=== PATIENT | female | born 1960 | race American Indian/Alaskan Native ===

== ENCOUNTER 2017-03-02 04:02 | Emergency (ER) | payer MEDICARE ==
[2017-03-02 05:13] LABS: Hematocrit 33.4 % (30.3-42.9); Hemoglobin 10.6 gm/dl (10.1-14.3); Mean Corpuscular HGB Conc 32 % (30-34); Mean Corpuscular Hemoglobin 29 pg (28-32); Mean Corpuscular Volume 90 fl (79-97); Platelet Count 124 K/mm3 (140-440)
[2017-03-02 05:21] LABS: Albumin 3.6 g/dL (3.9-5); BUN/Creatinine Ratio 5.93; Bilirubin,Total 0.6 mg/dL (0.1-1.2); Calcium 8.3 mg/dL (8.4-10.2); Chloride 95.6 mmol/L (98-107); Potassium 4.5 mmol/L (3.6-5.0); Total Protein 7.1 g/dL (6.3-8.2)
[2017-03-02 07:07] LABS: Basophils % (Manual) 0 % (0.0-1.8); Blastocytes % (Manual) 0 %
[2017-03-02 07:08] LABS: Anisocytosis 1+; Diff Status Complete; Platelet Estimate Appears Decreased; Polychromasia Few
[2017-03-02] MEDS ORDERED: ATARAX PO ONE (07:21)
[2017-03-02] MEDS ORDERED: NITROSTAT SL PRN (07:21)
[2017-03-02] MEDS ORDERED: BENTYL IM ONE (07:21)
[2017-03-02] MEDS ORDERED: ZOFRAN IV ONE (07:21)
--- NOTE | 2017-03-02 07:23 | Emergency Department Report ---
ED General Adult HPI - General Chief complaint: Abdominal Pain Stated complaint: ABD PAIN Time Seen by Provider: 03/02/17 07:03 Source: patient, family, EMS (ems notes not available at time of chart dictation), RN notes reviewed Mode of arrival: Stretcher Limitations: Physical Limitation - History of Present Illness Initial comments: Past medical history: Hypertension, coronary artery disease, end-stage renal disease on dialysis, Thursday, , Thursday, congestive heart failure, diabetes, arthritis, migraine headache, anxiety, depression, asthma, chronic pain, hypothyroidism, pancreatic pseudocyst This is a 57-year-old female. She is previously unknown to me. She presents to the ER with right-sided luis m-body pain. The pain is sharp. It started around 3 hours prior to presentation. Patient cannot describe exacerbating or relieving factors. She also describes painful inspiration, right upper quadrant pain, and right-sided chest wall pain. There is chronic lower extremity swelling. The patient denies focal extremity weakness, focal extremity numbness. Denies hematemesis and bright red blood per rectum. Patient complains of chronic shortness of breath, reports multiple allergies to multiple medications, also complains of total body itching. -: Gradual Location: head, chest, abdomen, right, upper extremity, lower extremity Severity scale (0 -10): 10 Quality: aching Consistency: constant Improves with: none Worsens with: none Associated Symptoms: chest pain, loss of appetite, malaise, weakness - Related Data Home Medications Medication Instructions Recorded Confirmed Last Taken Hydrocodone Bit/Acetaminophen 1 each PO Q6H PRN 10/10/13 03/02/17 1 Day Ago [Lortab 10-500 mg] 1 Fluconazole [Diflucan TAB] 50 mg PO QDAY 04/13/15 03/02/17 1 Day Ago 50 Insulin Aspart [NovoLOG 100 5 unit SQ QDAY 04/13/15 03/02/17 1 Day Ago UNITS/ML VIAL] 5 Advair Diskus 500-50 mcg 2 inhalation INHALATION BID 10/07/16 03/02/17 Unknown Flonase 2 insert INNOSTRIL BID 10/07/16 03/02/17 Unknown ProAir HFA Inhaler 2 inh IH Q6H 10/07/16 03/02/17 Unknown Previous Rx's Medication Instructions Recorded Last Taken Type Clopidogrel [Plavix] 75 mg PO QDAY #30 tablet 04/21/15 1 Day Ago Rx 75 Diazepam Tab [Valium] 5 mg PO QHS #30 tablet 04/21/15 1 Day Ago Rx 5 FLUoxetine HCL [FLUoxetine] 40 mg PO QDAY #30 mg 04/21/15 1 Day Ago Rx 40 Furosemide [Lasix TAB] 40 mg PO 0600,1800 #60 tablet 04/21/15 1 Day Ago Rx 40 HYDROcodone/APAP 10-325 [[place] 1 each PO Q6H PRN #60 tablet 04/21/15 1 Day Ago Rx 10-325 mg TAB] 1 Insulin Glargine [Lantus VIAL] 15 units SUB-Q QHS #60 units 04/21/15 1 Day Ago Rx 15 Ipratropium/Albuterol Sulfate 1 ampul IH Q6HRT ampul.neb 04/21/15 1 Day Ago Rx [Duoneb 0.5 mg-3 mg/3 ml Soln] 1 LORazepam [Ativan] 2 mg PO BID PRN #60 tablet 04/21/15 1 Day Ago Rx 2 Levothyroxine [Synthroid] 25 mcg PO DAILY #30 tablet 04/21/15 1 Day Ago Rx 50 Losartan [Cozaar] 100 mg PO QDAY #30 tablet 04/21/15 1 Day Ago Rx 100 Montelukast [Singulair] 10 mg PO QHS #30 tablet 04/21/15 1 Day Ago Rx 10 Nystatin [Nystatin Oral Susp] 100,000 unit PO QID #14 ml 04/21/15 1 Day Ago Rx [id number] Pantoprazole [Protonix TAB] 40 mg PO QDAY #30 tablet 04/21/15 1 Day Ago Rx 40 QUEtiapine [SEROquel] 200 mg PO QHS #30 tablet 04/21/15 1 Day Ago Rx 200 Sevelamer Carbonate [Renvela] 800 mg PO AC #30 tablet 04/21/15 1 Day Ago Rx 800 Simvastatin [Zocor TAB] 10 mg PO QHS #30 tablet 04/21/15 1 Day Ago Rx 10 Topiramate [Topamax] 100 mg PO TID #60 tablet 04/21/15 1 Day Ago Rx 100 Triamcinolone 0.5% [Kenalog 0.5% 1 applic TP TID #30 tube 04/21/15 1 Day Ago Rx CREAM] 1 hydrALAZINE [Apresoline TAB] 100 mg PO TID #90 tab 04/21/15 1 Day Ago Rx 100 hydrOXYzine HCL [Atarax] 50 mg PO Q6HR PRN #20 tablet 04/21/15 1 Day Ago Rx 25 amLODIPine [Norvasc] 10 mg PO QDAY #30 tablet 10/15/16 Unknown Rx Hydrocortisone/Aloe Vera 28.4 gm TP BID #1 cream..g. 11/26/16 Unknown Rx [Hydrocortisone-Aloe 0.5% Cream] Ondansetron [Zofran Odt] 4 mg PO Q8HR PRN #25 tab.rapdis 11/26/16 Unknown Rx diphenhydrAMINE [Benadryl ORAL LIQ] 12.5 mg PO Q4-6H PRN #1 bottle 11/26/16 Unknown Rx Dicyclomine [Bentyl] 10 mg PO QID PRN #20 capsule 03/02/17 Unknown Rx Ondansetron [Zofran Odt] 4 mg PO QID PRN #20 tab.rapdis 03/02/17 Unknown Rx Allergies Allergy/AdvReac Type Severity Reaction Status Date / Time acetaminophen Allergy Rash Verified 04/04/14 20:40 [From Darvocet-N 100] aspirin Allergy Rash Verified 04/04/14 20:40 epinephrine Allergy Rash Verified 04/04/14 20:40 methadone Allergy Unknown Verified 03/02/17 04:31 metoclopramide HCl Allergy Unknown Verified 03/02/17 04:30 [From Reglan] morphine Allergy Rash Verified 04/04/14 20:40 pregabalin [From Lyrica] Allergy Unknown Verified 03/02/17 04:31 prochlorperazine Allergy Unknown Verified 03/02/17 04:29 [From Compazine] prochlorperazine edisylate Allergy Unknown Verified 03/02/17 04:29 [From Compazine] prochlorperazine maleate Allergy Unknown Verified 03/02/17 04:29 [From Compazine] propoxyphene napsylate Allergy Rash Verified 04/04/14 20:40 [From Darvocet-N 100] Sulfa (Sulfonamide Allergy Hives Verified 04/04/14 20:40 Antibiotics) trimethobenzamide HCl Allergy Unknown Verified 04/04/14 20:40 [From Tigan] warfarin sodium Allergy Unknown Verified 03/02/17 04:30 [From Coumadin] ED Review of Systems ROS: Stated complaint: ABD PAIN Other details as noted in HPI Constitutional: malaise Eyes: denies: eye discharge ENT: denies: epistaxis Respiratory: cough Cardiovascular: chest pain Gastrointestinal: abdominal pain Skin: pruritus. denies: lesions Neurological: headache, weakness Psychiatric: anxiety ED Past Medical Hx - Past Medical History Previous Medical History?: Yes Hx Hypertension: Yes Hx Heart Attack/AMI: Yes Hx Congestive Heart Failure: Yes Hx Diabetes: Yes Hx Deep Vein Thrombosis: No Hx Pulmonary Embolism: No Hx Liver Disease: No Hx Renal Disease: Yes (TTS) Hx Arthritis: Yes Hx Headaches / Migraines: Yes Hx Psychiatric Treatment: Yes (anxiety. depression) Hx Asthma: Yes Hx COPD: No Hx Tuberculosis: No Hx HIV: No Additional medical history: hypothyroidism, cataracts, Fibromyalgia - Surgical History Past Surgical History?: Yes Hx Coronary Stent: Yes Hx Pacemaker: No Hx Internal Defibrillator: No Hx Cholecystectomy: Yes Hx Appendectomy: Yes Hx Breast Surgery: Yes (cyst removed from R breast) Additional Surgical History: eye surgery - Social History Smoking Status: Never Smoker Substance Use Type: None - Medications Home Medications: Home Medications Medication Instructions Recorded Confirmed Last Taken Type Hydrocodone Bit/Acetaminophen 1 each PO Q6H PRN 10/10/13 03/02/17 1 Day Ago History [Lortab 10-500 mg] 1 Fluconazole [Diflucan TAB] 50 mg PO QDAY 04/13/15 03/02/17 1 Day Ago History 50 Insulin Aspart [NovoLOG 100 5 unit SQ QDAY 04/13/15 03/02/17 1 Day Ago History UNITS/ML VIAL] 5 Clopidogrel [Plavix] 75 mg PO QDAY #30 tablet 04/21/15 03/02/17 1 Day Ago Rx 75 Diazepam Tab [Valium] 5 mg PO QHS #30 tablet 04/21/15 03/02/17 1 Day Ago Rx 5 FLUoxetine HCL [FLUoxetine] 40 mg PO QDAY #30 mg 04/21/15 03/02/17 1 Day Ago Rx 40 Furosemide [Lasix TAB] 40 mg PO 0600,1800 #60 tablet 04/21/15 03/02/17 1 Day Ago Rx 40 HYDROcodone/APAP 10-325 [[place] 1 each PO Q6H PRN #60 tablet 04/21/15 03/02/17 1 Day Ago Rx 10-325 mg TAB] 1 Insulin Glargine [Lantus VIAL] 15 units SUB-Q QHS #60 units 04/21/15 03/02/17 1 Day Ago Rx 15 Ipratropium/Albuterol Sulfate 1 ampul IH Q6HRT ampul.neb 04/21/15 03/02/17 1 Day Ago Rx [Duoneb 0.5 mg-3 mg/3 ml Soln] 1 LORazepam [Ativan] 2 mg PO BID PRN #60 tablet 04/21/15 03/02/17 1 Day Ago Rx 2 Levothyroxine [Synthroid] 25 mcg PO DAILY #30 tablet 04/21/15 03/02/17 1 Day Ago Rx 50 Losartan [Cozaar] 100 mg PO QDAY #30 tablet 04/21/15 03/02/17 1 Day Ago Rx 100 Montelukast [Singulair] 10 mg PO QHS #30 tablet 04/21/15 03/02/17 1 Day Ago Rx 10 Nystatin [Nystatin Oral Susp] 100,000 unit PO QID #14 ml 04/21/15 03/02/17 1 Day Ago Rx [id number] Pantoprazole [Protonix TAB] 40 mg PO QDAY #30 tablet 04/21/15 03/02/17 1 Day Ago Rx 40 QUEtiapine [SEROquel] 200 mg PO QHS #30 tablet 04/21/15 03/02/17 1 Day Ago Rx 200 Sevelamer Carbonate [Renvela] 800 mg PO AC #30 tablet 04/21/15 03/02/17 1 Day Ago Rx 800 Simvastatin [Zocor TAB] 10 mg PO QHS #30 tablet 04/21/15 03/02/17 1 Day Ago Rx 10 Topiramate [Topamax] 100 mg PO TID #60 tablet 04/21/15 03/02/17 1 Day Ago Rx 100 Triamcinolone 0.5% [Kenalog 0.5% 1 applic TP TID #30 tube 04/21/15 03/02/17 1 Day Ago Rx CREAM] 1 hydrALAZINE [Apresoline TAB] 100 mg PO TID #90 tab 04/21/15 03/02/17 1 Day Ago Rx 100 hydrOXYzine HCL [Atarax] 50 mg PO Q6HR PRN #20 tablet 04/21/15 03/02/17 1 Day Ago Rx 25 Advair Diskus 500-50 mcg 2 inhalation INHALATION BID 10/07/16 03/02/17 Unknown History Flonase 2 insert INNOSTRIL BID 10/07/16 03/02/17 Unknown History ProAir HFA Inhaler 2 inh IH Q6H 10/07/16 03/02/17 Unknown History amLODIPine [Norvasc] 10 mg PO QDAY #30 tablet 10/15/16 03/02/17 Unknown Rx Hydrocortisone/Aloe Vera 28.4 gm TP BID #1 cream..g. 11/26/16 03/02/17 Unknown Rx [Hydrocortisone-Aloe 0.5% Cream] Ondansetron [Zofran Odt] 4 mg PO Q8HR PRN #25 tab.rapdis 11/26/16 03/02/17 Unknown Rx diphenhydrAMINE [Benadryl ORAL LIQ] 12.5 mg PO Q4-6H PRN #1 bottle 11/26/1602/13 Unknown Rx Dicyclomine [Bentyl] 10 mg PO QID PRN #20 capsule 03/02/17 Unknown Rx Ondansetron [Zofran Odt] 4 mg PO QID PRN #20 tab.rapdis 03/02/17 Unknown Rx ED Physical Exam - General Limitations: Physical Limitation General appearance: alert, in no apparent distress - Head Head exam: Present: atraumatic, normocephalic - Eye Eye exam: Present: normal appearance, EOMI, other (left pupil is status post cataract surgery.). Absent: nystagmus - ENT ENT exam: Present: normal exam, normal orophraynx, mucous membranes moist, other (visual acuity intact to finger counting, color perception, rating at a close distance) - Neck Neck exam: Present: normal inspection, full ROM. Absent: tenderness, meningismus - Respiratory Respiratory exam: Present: normal lung sounds bilaterally. Absent: respiratory distress, wheezes, rales, rhonchi, stridor, decreased breath sounds - Cardiovascular Cardiovascular Exam: Present: regular rate, normal rhythm, normal heart sounds. Absent: bradycardia, tachycardia, irregular rhythm, systolic murmur, diastolic murmur, rubs, gallop - GI/Abdominal GI/Abdominal exam: Present: soft, tenderness, normal bowel sounds, other (there is right flank, right lower quadrant, right upper quadrant tenderness). Absent : distended, guarding, rebound, rigid, pulsatile mass - Extremities Exam Extremities exam: Present: normal inspection, normal capillary refill, pedal edema. Absent: calf tenderness - Back Exam Back exam: Present: normal inspection, full ROM. Absent: tenderness, CVA tenderness (R), CVA tenderness (L), muscle spasm, paraspinal tenderness, vertebral tenderness - Neurological Exam Neurological exam: Present: alert, oriented X3, other (Extraocular movements intact. Tongue midline. No facial droop. Facial sensation intact to light touch in the V1, V2, V3 distribution bilaterally. 5 and 5 strength in 4 extremities.. Sensation is intact to light touch in 4 extremities.). Absent: motor sensory deficit, reflexes normal - Psychiatric Psychiatric exam: Present: normal affect, normal mood - Skin Skin exam: Present: warm, dry, intact, normal color. Absent: rash ED Course Vital Signs 03/02/17 03/02/17 03/02/17 04:26 04:40 04:42 Temperature 98.2 F 98.2 F Pulse Rate 78 78 Respiratory 16 20 20 Rate Blood Pressure 145/79 Blood Pressure 145/79 145/79 [Right] O2 Sat by Pulse 99 99 Oximetry 03/02/17 09:02 Temperature 98.4 F Pulse Rate 84 Respiratory 16 Rate Blood Pressure Blood Pressure 169/92 [Right] O2 Sat by Pulse 97 Oximetry - Reevaluation(s) Reevaluation #1: 03/02/17 07:29 Differential diagnosis: End-stage renal disease on dialysis, fibromyalgia exacerbation, myositis, pneumonia, pulmonary embolus, pericarditis, myocarditis , pleuritis, pancreatic pseudocyst, nonspecific pruritus, acute coronary syndrome Assessment and plan: 57-year-old female with a number of nonspecific complaints , does endorse shortness of breath, right-sided chest pain, pleuritic pain. Laboratory studies are reviewed and appreciated. EKG, troponin, d-dimer, x-ray of the chest, noncontrast CT scan of the abdomen and pelvis ordered. Patient has a number of allergies; however chest pain as needed nitroglycerin is ordered , for her nausea, Zofran is ordered, for her abdominal pain and Bentyl is ordered. Unfortunately, she is endorsing allergies to antihistamines, including Atarax and Benadryl, however I do not appreciate any obvious cutaneous lesions, and her liver function tests are within normal limits. I would not consider her complaint of pruritus to be emergent at this time, and will defer further evaluation of that to an outpatient facility. Given numerous complaints including potential dose of a cardiac nature, patient to be admitted for further evaluation and management. Case is discussed with nephrology, Dr. Haynes, who will follow as a consult. Reevaluation #2: 03/02/17 09:58 CT scan of the abdomen and pelvis suggests constipation. Chronic findings noted. Nuclear medicine study interpretation is pending. Reevaluation #3: 03/02/17 11:35 Elevated troponin level is appreciated. This is most likely chronic and secondary to underlying renal insufficiency. Patient is sleeping comfortably on multiple re-evaluations. I informed the patient and family of her status and that we would admit her. The patient is now asking for additional pain medication. She is specifically asking for hydromorphone. I explained to the patient and her daughter that I felt hydromorphone was too potent and that the risks of respiratory suppression and arrest far outweighed the benefits. I offered the patient alternative therapy, including oxycodone and [place]. The patient declined these. She is going to sign out AGAINST MEDICAL ADVICE. She is alert and oriented 3. She is free from distracting injury. She understands the risks of leaving, including , disability, paralysis, permanent loss of quality of life. She indicates that she is going to follow up with her outpatient dialysis center tomorrow. She is instructed that she can return to the ER right away if and when she changes her mind. She will be discharged at this time,conversation as witnessed by patient's daughter, who signed the AMA form for the daughter as per the patients 's verbal request and the ama conversation is witnissed by THU Magana 03/02/17 15:51 - EJ/Peripheral Line Neck R Time Out Performed: Yes Indications: nurses unable to establis Skin Cleansed in Sterile Fashion: Yes Size: 18 Dressing Placed: Tegaderm Patient Tolerated Procedure: well ED Medical Decision Making - Lab Data Result diagrams: 03/02/17 04:45 03/02/17 04:45 Vital Signs 03/02/17 03/02/17 03/02/17 04:26 04:40 04:42 Temperature 98.2 F 98.2 F Pulse Rate 78 78 Respiratory 16 20 20 Rate Blood Pressure 145/79 Blood Pressure 145/79 145/79 [Right] O2 Sat by Pulse 99 99 Oximetry Lab Results 03/02/17 03/02/17 Range/Units 04:45 04:45 WBC 4.0 L (4.5-11.0) K/mm3 RBC 3.70 (3.65-5.03) M/mm3 Hgb 10.6 (10.1-14.3) gm/dl Hct 33.4 (30.3-42.9) % MCV 90 (79-97) fl MCH 29 (28-32) pg MCHC 32 (30-34) % RDW 20.0 H (13.2-15.2) % Plt Count 124 L (140-440) K/mm3 [place] % (Auto) Market Research Coordinator Add Manual Diff Complete Total Counted 100 Seg Neuts % (Manual) 66.0 (40.0-70.0) % Band Neutrophils % 1.0 % Lymphocytes % (Manual) 19.0 (13.4-35.0) % Reactive Lymphs % (Man) 0 % Monocytes % (Manual) 12.0 H (0.0-7.3) % Eosinophils % (Manual) 2.0 (0.0-4.3) % Basophils % (Manual) 0 (0.0-1.8) % Metamyelocytes % 0 % Myelocytes % 0 % Promyelocytes % 0 % Blast Cells % 0 % Nucleated RBC % Not Reportable Seg Neutrophils # Man 2.6 (1.8-7.7) K/mm3 Band Neutrophils # 0.0 K/mm3 Lymphocytes # (Manual) 0.8 L (1.2-5.4) K/mm3 Abs React Lymphs (Man) 0.0 K/mm3 Monocytes # (Manual) 0.5 (0.0-0.8) K/mm3 Eosinophils # (Manual) 0.1 (0.0-0.4) K/mm3 Basophils # (Manual) 0.0 (0.0-0.1) K/mm3 Metamyelocytes # 0.0 K/mm3 Myelocytes # 0.0 K/mm3 Promyelocytes # 0.0 K/mm3 Blast Cells # 0.0 K/mm3 WBC Morphology Not Reportable Hypersegmented Neuts Not Reportable Hyposegmented Neuts Not Reportable Hypogranular Neuts Not Reportable Smudge Cells Not Reportable Toxic Granulation Not Reportable Toxic Vacuolation Not Reportable Dohle Bodies Not Reportable Pelger-Huet Anomaly Not Reportable Armaan Rods Not Reportable Platelet Estimate Appears decreased Clumped Platelets Not Reportable Plt Clumps, EDTA Not Reportable Large Platelets Not Reportable Giant Platelets Not Reportable Platelet Satelliting Not Reportable Plt Morphology Comment Not Reportable RBC Morphology Not Reportable Dimorphic RBCs Not Reportable Polychromasia Few Hypochromasia Not Reportable Poikilocytosis Not Reportable Anisocytosis 1+ Microcytosis Not Reportable Macrocytosis Not Reportable Spherocytes Not Reportable Pappenheimer Bodies Not Reportable Sickle Cells Not Reportable Target Cells Not Reportable Tear Drop Cells Not Reportable Ovalocytes Not Reportable Helmet Cells Not Reportable Solares-Kieler Bodies Not Reportable Rockfall Rings Not Reportable [place] Cells Not Reportable Bite Cells Not Reportable Crenated Cell Not Reportable Elliptocytes Not Reportable Acanthocytes (Spur) Not Reportable Rouleaux Not Reportable Hemoglobin C Crystals Not Reportable Schistocytes Not Reportable Malaria parasites Not Reportable Ramos Bodies Not Reportable Hem Pathologist Commnt No Sodium 135 L (137-145) mmol/L Potassium 4.5 (3.6-5.0) mmol/L Chloride 95.6 L (98-107) mmol/L Carbon Dioxide 20 L (22-30) mmol/L Anion Gap 24 mmol/L BUN 35 H (7-17) mg/dL Creatinine 5.9 H (0.7-1.2) mg/dL Estimated GFR 9 ml/min BUN/Creatinine Ratio 5.93 % Glucose 91 (65-100) mg/dL Calcium 8.3 L (8.4-10.2) mg/dL Total Bilirubin 0.6 (0.1-1.2) mg/dL AST 14 (5-40) units/L ALT 11 (7-56) units/L Alkaline Phosphatase 492 H (35-129) units/L Total Protein 7.1 (6.3-8.2) g/dL Albumin 3.6 L (3.9-5) g/dL Albumin/Globulin Ratio 1.0 % Lipase 24 (13-60) units/L - EKG Data -: EKG Interpreted by Me - EKG Data 03/02/17 09:58 Normal sinus, 85 beats per minutes, first-degree AV block, incomplete right bundle branch block, abnormal, not consistent with STEMI. - Radiology Data Radiology results: report reviewed, image reviewed interpreted by me: X-ray of the chest demonstrates cardiomegaly, mild pulmonary vascular congestion , no acute disease. ct abd pelvis with out contrast: Stable mild cardiomegaly. Mild pericardial effusion. Right greater than left pleural effusions with underlying atelectasis. Right pleural effusion has a fifth of 4.5 cm, was previously 6.8 cm. There is nonspecific distal esophageal wall thickening, gastritis and reflux are a possibility. Stable cholecystectomy in few left upper quadrant surgical clips. Focal fluid collection is noted in the left hepatic lobe, measures approximately 10 cm x 9 cm, corresponding previous measurements were 10 x 7 x 9 cm. A small component of this fluid collection is again noted anterior to the left hepatic lobe, with mild periportal edema. Previous edema is noted. Increased diffuse colonic gas this distention and possible constipation. No evidence of obstruction. There is a fluid collection centered, appears stable compared to prior studies. v/q low prob Critical care attestation.: If time is entered above; I have spent that time in minutes in the direct care of this critically ill patient, excluding procedure time. ED Disposition Clinical Impression: ESRD (end stage renal disease) on dialysis, Fibromyalgia Disposition: LEFT AGAINST MEDICAL ADVICE Is pt being admited?: No Does the pt Need Aspirin: No Condition: Stable Instructions: Abdominal Pain (ED) Additional Instructions: As we discussed, you have left the emergency room AGAINST MEDICAL ADVICE. By leaving, the patient risks , disability, paralysis, permanent loss of quality of life. Return to the ER right away with new pain, worsened pain, migration of pain, intractable nausea or vomiting, inability to tolerate liquid feeds, or if and when you change your mind. The emergency room is open 24 hours a day, 7 days a week, and it never closed. Take the pain medication, nausea medication as directed. Follow up as soon as possible with any of the listed physician specialists, or return to the ER right away if and when you change her mind. Prescriptions: Dicyclomine [Bentyl] 10 mg PO QID PRN #20 capsule PRN Reason: Pain Ondansetron [Zofran Odt] 4 mg PO QID PRN #20 tab.rapdis PRN Reason: Nausea Referrals: PRIMARY CARE, [Primary Care Provider] - 3-5 Days NORI MUNIZ MD [Staff Physician] - 3-5 Days KACIE LARKIN MD [Staff Physician] - 3-5 Days GABBY SHAFFER MD [Staff Physician] - 3-5 Days SISSY MELENDEZ MD [Staff Physician] - 3-5 Days
[2017-03-02 07:58] LABS: INR 1.08 (0.87-1.13)
[2017-03-02] MEDS ORDERED: BENTYL ONE (08:03)
[2017-03-02] MEDS ORDERED: BENTYL PO ONE (08:28)
--- NOTE | 2017-03-02 08:29 | Admit Criteria Form ---
Admission Criteria Documentation: RENAL FAILURE, CHRONIC Clinical Indications for Admission to Inpatient Care (Place 'X' for any and all applicable criteria): Admission is indicated for ANY ONE of the following (1)(2)(3)(4)(5): [X]I. Inpatient admission required rather than observation care (Use Renal Failure, Chronic: Observation Care Criteria as appropriate) because of ANY ONE of the following: [ ]a) Volume overload or uremic symptoms (eg, clinically significant pulmonary edema, hypertension, pericarditis, acidosis) too severe for, or not responsive (eg, for over 24 hours) to emergency department or observation care dialysis or treatment regimen (11) [ ]b) Hemodynamic instability that is severe or persistent [ ]c) Respiratory distress that is severe or persistent (11) [ ]d) Clinically significant electrolyte abnormality that requires inpatient care (eg,hyperkalemia with severe ECG findings)[B] [ ]e) Supplement O2 or respiratory therapy for over 24hrs that is performable only in acute inpatient setting [ ]f) Continuous IV infusion of anticoagulation, platelet inhibitor, vasoactive, or Antiarrhythmic medication (15), [ ]g) Pulmonary artery catheter monitoring [ ]h) Temporary pacemaker placement [ ]i) Emergent pericardiocentesis [X]j) Other condition, treatment or monitoring requiring inpatient admission [ ]II. Unexplained syncope [A] [ ]III. Recurrent seizures [ ]IV. Severe infections not treatable in outpatient setting (eg, peritonitis)(9 ) [ ]V. Cardiac arrhythmias of immediate concern [ ]. Encephalopathy [ ]VII.Bleeding abnormalities (eg, platelet dysfunction) with active (eg, gastrointestinal) bleeding Extended stay beyond goal length of stay may be needed for (3)(4)(35)(36): [ ]a) Continuing uremic complications [ ]b) Comorbidities or complications The original [employer] content created by [employer] has been revised. The portions of the content which have been revised are identified through the use of italic text or in bold, and [email or web address] has neither reviewed nor approved the modified material. All other unmodified content is copyright [employer]. Please see references footnoted in the original [employer] edition 2016
--- NOTE | 2017-03-02 08:39 | Cat Scan Report ---
CT ABDOMEN AND PELVIS WITHOUT CONTRAST INDICATION: Abdominal pain. COMPARISON: 10/07/2016 FINDINGS: Noncontrast abdomen and pelvis CT performed. LUNG BASES: Stable mild cardiomegaly and approximately 1.1 cm thickness pericardial effusion posterior to the left ventricle, axial image 16, series 2. Coronary calcifications. Right greater than left pleural effusions again noted with underlying atelectasis. Right pleural effusion has AP depth of 4.5 cm, axial image 4, previously 6.8 cm. Small left pleural effusion is now approximately 1.7 cm thickness, axial image 36, previously approximately 5 cm. Right hemidiaphragm may again be mildly elevated. Nonspecific distal esophageal wall thickening, not excluded for gastroesophageal reflux and/or hiatal hernia, amongst others. ABDOMEN: Please note that sensitivity to detect small visceral lesions is limited due to the absence of intravenous or oral contrast. Stable cholecystectomy and few left upper quadrant surgical clips. Some streak artifact. Focal fluid collection along the left hepatic lobe in the falciform ligament region again noted with maximum index measurements of approximately 10.5 cm AP x 8.9 cm transverse, axial image 67 and approximately 8 cm craniocaudal with attenuation of 12 HU. Corresponding previous measurements were 10.5 x 7.7 x 9 cm. Small component of this fluid collection also again noted anterior to the left hepatic lobe as measuring 2.5 x 4.3 cm on axial image 51, series 2 with craniocaudal extent of approximately 11 cm, extending to the diaphragm. Mild periportal edema again noted. Prominent hepatic veins. Otherwise grossly unremarkable unenhanced liver, spleen, pancreas, adrenals, nonaneurysmal abdominal aorta and IVC. Mildly atrophic, nonhydronephrotic kidneys with few small hypodensities on the right possible. Mild bilateral perinephric stranding. No radiopaque calculi. Few small, predominantly subcentimeter retroperitoneal and mesenteric lymph nodes may be present. Minimal ascites/stranding about the right hepatic lobe tip noted extending along the paracolic gutter. Some fluid/edema within the adrianna hepatis and slight peripancreatic may also again be present. Nonopacified GI tract evaluation limited, though small bowel grossly nonobstructive. Few small right lower quadrant lymph nodes. Mild to moderate colonic air and stool/possible constipation. PELVIS: Mild to moderate rectosigmoid air and some stool. Non-opacified urinary bladder suboptimally distended and assessed. Few pelvic phleboliths. Uterus surgically absent. No significant free fluid or adenopathy. Diffuse subcutaneous edema again noted. Bilateral gluteal calcified injection granulomas. Mild lower thoracic spine degenerative spurring and few endplate Schmorl's nodes. Slightly sclerotic bony heterogeneity/possible renal osteodystrophy. CONCLUSION: 1. Increased diffuse colonic gaseous distention and stool/possible constipation. No evidence of bowel obstruction. 2. Fluid collection centered about the left hepatic lobe/falciform ligament region again noted as also minimal ascites, small pericardial effusion and right more than left pleural effusions, overall stable to improved since the prior exam, as described above. 3. Various stable findings, including cardiomegaly with cardiac dysfunction, possible periportal edema, renal failure, diffuse sub cutaneous edema and few iatrogenic changes on this limited, unenhanced exam, as above. 4. Few other incidental findings, as detailed above. Thank you for the opportunity to participate in this patient's care.
--- NOTE | 2017-03-02 08:39 | XRay Report ---
Single view chest: History: Chest pain. Findings: Cardiomegaly. Trachea is midline. Mild pulmonary venous congestion. No consolidation. Minimal blunting of right CP angle. No consolidation or pneumothorax. Impression: Probable early CHF.
[2017-03-02 09:03] VITALS: BP 169/92
[2017-03-02] MEDS ORDERED: PLAVIX PO ONE (10:37)
--- NOTE | 2017-03-02 11:09 | History and Physical Report ---
History of Present Illness Date of examination: 03/02/17 Medications and Allergies Allergies Allergy/AdvReac Type Severity Reaction Status Date / Time acetaminophen Allergy Rash Verified 04/04/14 20:40 [From Darvocet-N 100] aspirin Allergy Rash Verified 04/04/14 20:40 epinephrine Allergy Rash Verified 04/04/14 20:40 methadone Allergy Unknown Verified 03/02/17 04:31 metoclopramide HCl Allergy Unknown Verified 03/02/17 04:30 [From Reglan] morphine Allergy Rash Verified 04/04/14 20:40 pregabalin [From Lyrica] Allergy Unknown Verified 03/02/17 04:31 prochlorperazine Allergy Unknown Verified 03/02/17 04:29 [From Compazine] prochlorperazine edisylate Allergy Unknown Verified 03/02/17 04:29 [From Compazine] prochlorperazine maleate Allergy Unknown Verified 03/02/17 04:29 [From Compazine] propoxyphene napsylate Allergy Rash Verified 04/04/14 20:40 [From Darvocet-N 100] Sulfa (Sulfonamide Allergy Hives Verified 04/04/14 20:40 Antibiotics) trimethobenzamide HCl Allergy Unknown Verified 04/04/14 20:40 [From Tigan] warfarin sodium Allergy Unknown Verified 03/02/17 04:30 [From Coumadin] Home Medications Medication Instructions Recorded Confirmed Last Taken Type Hydrocodone Bit/Acetaminophen 1 each PO Q6H PRN 10/10/13 03/02/17 1 Day Ago History [Lortab 10-500 mg] 1 Fluconazole [Diflucan TAB] 50 mg PO QDAY 04/13/15 03/02/17 1 Day Ago History 50 Insulin Aspart [NovoLOG 100 5 unit SQ QDAY 04/13/15 03/02/17 1 Day Ago History UNITS/ML VIAL] 5 Clopidogrel [Plavix] 75 mg PO QDAY #30 tablet 04/21/15 03/02/17 1 Day Ago Rx 75 Diazepam Tab [Valium] 5 mg PO QHS #30 tablet 04/21/15 03/02/17 1 Day Ago Rx 5 FLUoxetine HCL [FLUoxetine] 40 mg PO QDAY #30 mg 04/21/15 03/02/17 1 Day Ago Rx 40 Furosemide [Lasix TAB] 40 mg PO 0600,1800 #60 tablet 04/21/15 03/02/17 1 Day Ago Rx 40 HYDROcodone/APAP 10-325 [[place] 1 each PO Q6H PRN #60 tablet 04/21/15 03/02/17 1 Day Ago Rx 10-325 mg TAB] 1 Insulin Glargine [Lantus VIAL] 15 units SUB-Q QHS #60 units 04/21/15 03/02/17 1 Day Ago Rx 15 Ipratropium/Albuterol Sulfate 1 ampul IH Q6HRT ampul.neb 04/21/15 03/02/17 1 Day Ago Rx [Duoneb 0.5 mg-3 mg/3 ml Soln] 1 LORazepam [Ativan] 2 mg PO BID PRN #60 tablet 04/21/15 03/02/17 1 Day Ago Rx 2 Levothyroxine [Synthroid] 25 mcg PO DAILY #30 tablet 04/21/15 03/02/17 1 Day Ago Rx 50 Losartan [Cozaar] 100 mg PO QDAY #30 tablet 04/21/15 03/02/17 1 Day Ago Rx 100 Montelukast [Singulair] 10 mg PO QHS #30 tablet 04/21/15 03/02/17 1 Day Ago Rx 10 Nystatin [Nystatin Oral Susp] 100,000 unit PO QID #14 ml 04/21/15 03/02/17 1 Day Ago Rx [id number] Pantoprazole [Protonix TAB] 40 mg PO QDAY #30 tablet 04/21/15 03/02/17 1 Day Ago Rx 40 QUEtiapine [SEROquel] 200 mg PO QHS #30 tablet 04/21/15 03/02/17 1 Day Ago Rx 200 Sevelamer Carbonate [Renvela] 800 mg PO AC #30 tablet 04/21/15 03/02/17 1 Day Ago Rx 800 Simvastatin [Zocor TAB] 10 mg PO QHS #30 tablet 04/21/15 03/02/17 1 Day Ago Rx 10 Topiramate [Topamax] 100 mg PO TID #60 tablet 04/21/15 03/02/17 1 Day Ago Rx 100 Triamcinolone 0.5% [Kenalog 0.5% 1 applic TP TID #30 tube 04/21/15 03/02/17 1 Day Ago Rx CREAM] 1 hydrALAZINE [Apresoline TAB] 100 mg PO TID #90 tab 04/21/15 03/02/17 1 Day Ago Rx 100 hydrOXYzine HCL [Atarax] 50 mg PO Q6HR PRN #20 tablet 04/21/15 03/02/17 1 Day Ago Rx 25 Advair Diskus 500-50 mcg 2 inhalation INHALATION BID 10/07/16 03/02/17 Unknown History Flonase 2 insert INNOSTRIL BID 10/07/16 03/02/17 Unknown History ProAir HFA Inhaler 2 inh IH Q6H 10/07/16 03/02/17 Unknown History amLODIPine [Norvasc] 10 mg PO QDAY #30 tablet 10/15/16 03/02/17 Unknown Rx Hydrocortisone/Aloe Vera 28.4 gm TP BID #1 cream..g. 11/26/16 03/02/17 Unknown Rx [Hydrocortisone-Aloe 0.5% Cream] Ondansetron [Zofran Odt] 4 mg PO Q8HR PRN #25 tab.rapdis 11/26/16 03/02/17 Unknown Rx diphenhydrAMINE [Benadryl ORAL LIQ] 12.5 mg PO Q4-6H PRN #1 bottle 11/26/1602/13 Unknown Rx Active Meds: Active Medications Albuterol/Ipratropium (Duoneb 0.5 Mg-3 Mg/3 Ml Soln) 1 ampul IH Q6HRT PB Amlodipine Besylate (Norvasc) 10 mg PO QDAY PB Clopidogrel Bisulfate (Plavix) 75 mg PO QDAY PB Furosemide (Lasix) 40 mg PO 0600,1800 PB Heparin Sodium (Porcine) (Heparin) 5,000 unit SUB-Q Q12HR PB Hydralazine HCl (Apresoline) 100 mg PO TID PB Levothyroxine Sodium (Synthroid) 25 mcg PO DAILY PB Miscellaneous Medication (Advair Diskus 500-50 Mcg) 2 inhalation INHALATION BID PB Miscellaneous Medication (Fluconazole [Diflucan Tab]) 50 mg PO QDAY PB Miscellaneous Medication (Fluoxetine Hcl [Fluoxetine]) 40 mg PO QDAY [facility] Miscellaneous Medication (Insulin Glargine) 15 units SUB-Q QHS PB Miscellaneous Medication (Losartan [Cozaar]) 100 mg PO QDAY PB Montelukast Sodium (Singulair) 10 mg PO QHS PB Nitroglycerin (Nitrostat) 0.4 mg SL .Q5MIN PRN PRN Reason: Chest Pain Pantoprazole Sodium (Protonix) 40 mg PO QDAY PB Quetiapine Fumarate (Seroquel) 200 mg PO QHS PB Sevelamer Carbonate (Renvela) 800 mg PO AC PB Simvastatin (Zocor) 10 mg PO QHS PB Topiramate (Topamax) 100 mg PO TID PB Exam - Constitutional Vitals: Temp Pulse Resp BP Pulse Ox 98.4 F 84 16 169/92 97 03/02/17 09:02 03/02/17 09:02 03/02/17 09:02 03/02/17 09:02 03/02/17 09:02 Results - Labs CBC & Chem 7: 03/02/17 04:45 03/02/17 04:45 Labs: Abnormal lab results 03/02/17 03/02/17 03/02/17 Range/Units 04:45 04:45 07:26 WBC 4.0 L (4.5-11.0) K/mm3 RDW 20.0 H (13.2-15.2) % Plt Count 124 L (140-440) K/mm3 Monocytes % (Manual) 12.0 H (0.0-7.3) % Lymphocytes # (Manual) 0.8 L (1.2-5.4) K/mm3 D-Dimer 499.27 H (0-234) ng/mlDDU Sodium 135 L (137-145) mmol/L Chloride 95.6 L (98-107) mmol/L Carbon Dioxide 20 L (22-30) mmol/L BUN 35 H (7-17) mg/dL Creatinine 5.9 H (0.7-1.2) mg/dL Calcium 8.3 L (8.4-10.2) mg/dL Alkaline Phosphatase 492 H (35-129) units/L Troponin T (0.00-0.029) ng/mL NT-Pro-B Natriuret Pep (0-900) pg/mL Albumin 3.6 L (3.9-5) g/dL HDL Cholesterol (40-59) mg/dL 03/02/17 03/02/17 Range/Units 07:26 07:31 WBC (4.5-11.0) K/mm3 RDW (13.2-15.2) % Plt Count (140-440) K/mm3 Monocytes % (Manual) (0.0-7.3) % Lymphocytes # (Manual) (1.2-5.4) K/mm3 D-Dimer (0-234) ng/mlDDU Sodium (137-145) mmol/L Chloride (98-107) mmol/L Carbon Dioxide (22-30) mmol/L BUN (7-17) mg/dL Creatinine (0.7-1.2) mg/dL Calcium (8.4-10.2) mg/dL Alkaline Phosphatase (35-129) units/L Troponin T 0.250 H* (0.00-0.029) ng/mL NT-Pro-B Natriuret Pep 42648 H (0-900) pg/mL Albumin (3.9-5) g/dL HDL Cholesterol 83 H (40-59) mg/dL
--- NOTE | 2017-03-02 11:12 | Nuclear Medicine Report ---
LUNG SCAN, VENTILATION AND PERFUSION: Inhalation of Xenon gas demonstrates a normal distribution of the activity throughout both lungs. The wash out phases shows heterogeneous retention of activity at the right lung. No retention of activity noted left lung. After injection of Technetium 99m macroaggregated albumin gamma camera imaging of the lungs in multiple projections demonstrates normal pulmonary contours with a homogeneous distribution of activity left lung. Heterogeneous activity at right lung. No focal areas of perfusion deficiency are identified. IMPRESSION: Findings suggestive of COPD with low probability for pulmonary embolism.
[2017-03-02] MEDS ORDERED: RENVELA PO SCH (11:30)
--- NOTE | 2017-03-02 12:13 | Consultation ---
History of Present Illness - Reason for Consult Consult date: 03/02/17 end stage renal disease - History of Present Illness patient with h/o ESRD due HTN and DM, has been receiving HD for the last 10 years ever TTS, last treatment was Thursday, came to the ED for worsening generalized body pain, she takes pain meds at home but did not work for her current pain. CXR was done and showed early CHF, renal consult requested for HD management. Past History Past Medical History: diabetes, ESRD, heart failure, hypertension Medications and Allergies Allergies Allergy/AdvReac Type Severity Reaction Status Date / Time acetaminophen Allergy Rash Verified 04/04/14 20:40 [From Darvocet-N 100] aspirin Allergy Rash Verified 04/04/14 20:40 epinephrine Allergy Rash Verified 04/04/14 20:40 methadone Allergy Unknown Verified 03/02/17 04:31 metoclopramide HCl Allergy Unknown Verified 03/02/17 04:30 [From Reglan] morphine Allergy Rash Verified 04/04/14 20:40 pregabalin [From Lyrica] Allergy Unknown Verified 03/02/17 04:31 prochlorperazine Allergy Unknown Verified 03/02/17 04:29 [From Compazine] prochlorperazine edisylate Allergy Unknown Verified 03/02/17 04:29 [From Compazine] prochlorperazine maleate Allergy Unknown Verified 03/02/17 04:29 [From Compazine] propoxyphene napsylate Allergy Rash Verified 04/04/14 20:40 [From Darvocet-N 100] Sulfa (Sulfonamide Allergy Hives Verified 04/04/14 20:40 Antibiotics) trimethobenzamide HCl Allergy Unknown Verified 04/04/14 20:40 [From Tigan] warfarin sodium Allergy Unknown Verified 03/02/17 04:30 [From Coumadin] Home Medications Medication Instructions Recorded Confirmed Last Taken Type Hydrocodone Bit/Acetaminophen 1 each PO Q6H PRN 10/10/13 03/02/17 1 Day Ago History [Lortab 10-500 mg] 1 Fluconazole [Diflucan TAB] 50 mg PO QDAY 04/13/15 03/02/17 1 Day Ago History 50 Insulin Aspart [NovoLOG 100 5 unit SQ QDAY 04/13/15 03/02/17 1 Day Ago History UNITS/ML VIAL] 5 Clopidogrel [Plavix] 75 mg PO QDAY #30 tablet 04/21/15 03/02/17 1 Day Ago Rx 75 Diazepam Tab [Valium] 5 mg PO QHS #30 tablet 04/21/15 03/02/17 1 Day Ago Rx 5 FLUoxetine HCL [FLUoxetine] 40 mg PO QDAY #30 mg 04/21/15 03/02/17 1 Day Ago Rx 40 Furosemide [Lasix TAB] 40 mg PO 0600,1800 #60 tablet 04/21/15 03/02/17 1 Day Ago Rx 40 HYDROcodone/APAP 10-325 [[place] 1 each PO Q6H PRN #60 tablet 04/21/15 03/02/17 1 Day Ago Rx 10-325 mg TAB] 1 Insulin Glargine [Lantus VIAL] 15 units SUB-Q QHS #60 units 04/21/15 03/02/17 1 Day Ago Rx 15 Ipratropium/Albuterol Sulfate 1 ampul IH Q6HRT ampul.neb 04/21/15 03/02/17 1 Day Ago Rx [Duoneb 0.5 mg-3 mg/3 ml Soln] 1 LORazepam [Ativan] 2 mg PO BID PRN #60 tablet 04/21/15 03/02/17 1 Day Ago Rx 2 Levothyroxine [Synthroid] 25 mcg PO DAILY #30 tablet 04/21/15 03/02/17 1 Day Ago Rx 50 Losartan [Cozaar] 100 mg PO QDAY #30 tablet 04/21/15 03/02/17 1 Day Ago Rx 100 Montelukast [Singulair] 10 mg PO QHS #30 tablet 04/21/15 03/02/17 1 Day Ago Rx 10 Nystatin [Nystatin Oral Susp] 100,000 unit PO QID #14 ml 04/21/15 03/02/17 1 Day Ago Rx [id number] Pantoprazole [Protonix TAB] 40 mg PO QDAY #30 tablet 04/21/15 03/02/17 1 Day Ago Rx 40 QUEtiapine [SEROquel] 200 mg PO QHS #30 tablet 04/21/15 03/02/17 1 Day Ago Rx 200 Sevelamer Carbonate [Renvela] 800 mg PO AC #30 tablet 04/21/15 03/02/17 1 Day Ago Rx 800 Simvastatin [Zocor TAB] 10 mg PO QHS #30 tablet 04/21/15 03/02/17 1 Day Ago Rx 10 Topiramate [Topamax] 100 mg PO TID #60 tablet 04/21/15 03/02/17 1 Day Ago Rx 100 Triamcinolone 0.5% [Kenalog 0.5% 1 applic TP TID #30 tube 04/21/15 03/02/17 1 Day Ago Rx CREAM] 1 hydrALAZINE [Apresoline TAB] 100 mg PO TID #90 tab 04/21/15 03/02/17 1 Day Ago Rx 100 hydrOXYzine HCL [Atarax] 50 mg PO Q6HR PRN #20 tablet 04/21/15 03/02/17 1 Day Ago Rx 25 Advair Diskus 500-50 mcg 2 inhalation INHALATION BID 10/07/16 03/02/17 Unknown History Flonase 2 insert INNOSTRIL BID 10/07/16 03/02/17 Unknown History ProAir HFA Inhaler 2 inh IH Q6H 10/07/16 03/02/17 Unknown History amLODIPine [Norvasc] 10 mg PO QDAY #30 tablet 10/15/16 03/02/17 Unknown Rx Hydrocortisone/Aloe Vera 28.4 gm TP BID #1 cream..g. 11/26/16 03/02/17 Unknown Rx [Hydrocortisone-Aloe 0.5% Cream] Ondansetron [Zofran Odt] 4 mg PO Q8HR PRN #25 tab.rapdis 11/26/16 03/02/17 Unknown Rx diphenhydrAMINE [Benadryl ORAL LIQ] 12.5 mg PO Q4-6H PRN #1 bottle 11/26/1602/13 Unknown Rx Dicyclomine [Bentyl] 10 mg PO QID PRN #20 capsule 03/02/17 Unknown Rx Ondansetron [Zofran Odt] 4 mg PO QID PRN #20 tab.rapdis 03/02/17 Unknown Rx Review of Systems All systems: negative (SOB, chest pain, generalized body pain) Exam - Vital Signs Vital signs: Vital Signs Temp Pulse Resp BP Pulse Ox 98.2 F 78 16 145/79 99 03/02/17 04:26 03/02/17 04:26 03/02/17 04:26 03/02/17 04:26 03/02/17 04:26 - General Appearance General appearance: well-developed, well-nourished EENT: ATNC, PERRL, mucous membranes moist Neck: Present: neck supple Respiratory: Decreased Breath Sounds Heart: regular, S1S2 Gastrointestinal: Present: normoactive bowel sounds. Absent: tenderness, distended Integumentary: no rash, warm and dry Neurologic: no focal deficit, no asterixis, alert and oriented x3 Musculoskeletal: Present: other (trace pitting edema in BLE) Psychiatric: mood/affect appropriate, cooperative Results - Lab Results 03/02/17 04:45 03/02/17 04:45 Most recent lab results Calcium 8.3 mg/dL (8.4-10.2) L 03/02/17 04:45 Assessment and Plan - Patient Problems (1) End stage renal disease on dialysis Current Visit: Yes Status: Acute Plan to address problem: HD today for clearance and volume removal will assess dialysis needs daily renally dose meds strict I&O daily weights (2) Anemia in chronic kidney disease (CKD) Current Visit: Yes Status: Acute Plan to address problem: no indication for transfusion Epogen with HD (3) Pulmonary congestion Current Visit: Yes Status: Acute Plan to address problem: ultrafiltration with HD as above will assess dialysis needs daily (4) Hypertension Current Visit: No Status: Chronic Qualifiers: Hypertension type: H Plan to address problem: UF with HD will adjust BP meds as needed (5) Type 2 diabetes mellitus Current Visit: No Status: Chronic Qualifiers: Diabetes mellitus complication status: D Diabetes mellitus complication detail: D Diabetic retinopathy severity: D Proliferative retinopathy type: P Diabetes mellitus macular edema: D Diabetes mellitus [facility] insulin use : D Laterality: L Chronic kidney disease stage: C Plan to address problem: per primary team
[2017-03-02] MEDS ORDERED: TOPAMAX PO SCH (14:00)
[2017-03-02] MEDS ORDERED: DUONEB 0.5 MG-3 MG/3 ML SOLN IH SCH (14:00)
[2017-03-02] MEDS ORDERED: APRESOLINE PO SCH (14:00)
[2017-03-02] MEDS ORDERED: LASIX PO SCH (18:00)
[2017-03-02] MEDS ORDERED: HEPARIN SUB-Q SCH (22:00)
[2017-03-02] MEDS ORDERED: ZOCOR PO SCH (22:00)
[2017-03-02] MEDS ORDERED: SINGULAIR PO SCH (22:00)
[2017-03-02] MEDS ORDERED: ADVAIR INHALATION SCH (22:00)
[2017-03-02] MEDS ORDERED: NON-FORMULARY (Insulin Glargine 15 UNITS) SUB-Q SCH (22:00)
[2017-03-02] MEDS ORDERED: LEVEMIR SUB-Q SCH (22:00)
[2017-03-03] MEDS ORDERED: NORVASC PO SCH (10:00)
[2017-03-03] MEDS ORDERED: PROTONIX PO SCH (10:00)
[2017-03-03] MEDS ORDERED: PLAVIX PO SCH (10:00)
[2017-03-03] MEDS ORDERED: PROzac PO SCH (10:00)
[2017-03-03] MEDS ORDERED: FLUCONAZOLE 50 MG PO SCH (10:00)
[2017-03-03] MEDS ORDERED: DIFLUCAN PO SCH (10:00)
[2017-03-03] MEDS ORDERED: NON-FORMULARY (Fluoxetine Hcl [Fluoxetine] 40 MG) PO SCH (10:00)
[2017-03-03] MEDS ORDERED: NON-FORMULARY (Losartan [Cozaar] 100 MG) PO SCH (10:00)
[2017-03-03] MEDS ORDERED: SYNTHROID PO SCH (10:00)
[2017-03-03] MEDS ORDERED: COZAAR PO SCH (10:00)
== END 2017-03-02 12:06 | disposition left against medical advice (07) ==
LOC: ED 04:02
DX: I12.0 Hypertensive chronic kidney disease with stage 5 chronic kidney disease or end stage renal disease (principal); N18.6 End stage renal disease; Z99.2 Dependence on renal dialysis; M79.7 Fibromyalgia; I25.2 Old myocardial infarction; I50.9 Heart failure, unspecified; E11.9 Type 2 diabetes mellitus without complications; M19.90 Unspecified osteoarthritis, unspecified site; G43.909 Migraine, unspecified, not intractable, without status migrainosus; F32.9 Major depressive disorder, single episode, unspecified; F41.9 Anxiety disorder, unspecified; J45.909 Unspecified asthma, uncomplicated; E03.9 Hypothyroidism, unspecified; Z90.49 Acquired absence of other specified parts of digestive tract; Z79.4 Long term (current) use of insulin; Z88.5 Allergy status to narcotic agent; Z88.6 Allergy status to analgesic agent; Z88.2 Allergy status to sulfonamides; Z88.1 Allergy status to other antibiotic agents; Z88.8 Allergy status to other drugs, medicaments and biological substances
CPT/HCPCS: 36415; 36569; 71010; 74176; 78582; 80053; 80061; 83690; 83880; 84484; 85007; 85025; 85379; 85610; 93005; 93010; 96374; 99285; A9540; A9558; J2405